=== PATIENT | female | born 2000 | race Caucasian/White ===

== ENCOUNTER 2019-06-26 04:37 | Emergency (ER) | payer SELFPAY ==
--- NOTE | 2019-06-26 04:56 | PDOC ---
History of Present Illness - General Chief Complaint: Alcohol intoxication Stated Complaint: INTOX Time Seen by Provider: 06/26/19 04:48 History Source: Friend Exam Limitations: No Limitations - History of Present Illness Initial Comments: 06/26/19 04:52 This is a 18-year-old female brought in by EMS for evaluation of intoxication. Patient is with a friend. A Friend said they were out drinking vodka and her last drink was approximately 2 hours ago. The reason EMS was called to the patient's [facility] was because patient had passed out in the lobby of the school. However here in the emergency room patient is agitated and does not want to stay. Allergies: as per nursing notes Past Medical History: none Social history: Lives with family. No smoking. No alcohol. No illicit drugs. Surgical history: None General: No fevers or chills, no weakness, no weight loss HEENT: No change in vision. No sore throat,. No ear pain CardioVascular: no chest discomfort. No shortness of breath Respiratory:No cough, or wheezing. Gastrointestinal: no nausea, vomiting, diarrhea or constipation, No rectal bleeding Genitourinary: No dysuria, hematuria, or frequency Musculoskeletal: No joint or muscle pain or swelling Neurologic: No headache, vertigo, dizziness or loss of consciousness Psychiatric: nor depression Skin: No rashes or easy bruising Endocrine: no increased thirst or abnormal weight change Allergic: no skin or latex allergy All other systems reviewed and normal Exam: General: Well-nourished well-developed individual, no acute distress HEENT: Throat: Normal, tonsils normal, no erythema or exudate Neck: Supple, no meningeal signs, no lymphadenopathy Eyes::Pupils equal reactive and round, extraocular motion intact Chest: Nontender to palpation Cardiac: S1-S2 normal, regular rate and rhythm, no murmurs rubs or gallops Respiratory: Lungs clear to auscultation bilateral Abdomen: Soft, nondistended, normal bowel sounds, there is no tenderness on palpation diffusely Extremities: Warm, dry, no cyanosis, clubbing, or edema Skin: No rashes Neuro: Alert and oriented x3, CN II - XII intact, nonfocal exam with normal strength, normal sensation, normal reflexes, normal gait, Psych: Normal mood and affect 06/26/19 06:19 Patient awake alert ambulatory and in no distress. Patient able to ambulate to the bathroom without difficulty. Patient states that she is ready to go home and wants to go home. Patient's friend will make sure she gets back to her dormitory Past History - Past Medical History Allergies/Adverse Reactions: Allergies Allergy/AdvReac Type Severity Reaction Status Date / Time No Known Allergies Allergy Unverified 06/26/19 04:46 Home Medications: Ambulatory Orders NK [No Known Home Medication] 06/26/19 Discharge - Discharge Information Problems reviewed: Yes Clinical Impression/Diagnosis: Intoxication Condition: Stable Disposition: HOME - Admission No - Follow up/Referral - Patient Discharge Instructions Patient Printed Discharge Instructions: Alcohol and Stress: There are Safer Ways to [place], [place] for Alcohol Abuse Additional Instructions: Return to the emergency department immediately with ANY new, persistent or worsening symptoms. Continue any medications as previously prescribed by your physician. You should follow up with your primary doctor as soon as possible regarding today's emergency department visit. . Please make sure your doctor reviews the results of your emergency evaluation. Thank you for coming to the Emergency Department today for your care. It was a pleasure to see you today. Please note that your evaluation is INCOMPLETE until you follow-up with your doctor. - Post Discharge Activity
[2019-06-26 05:06] VITALS: TEMP 97.6; BMI 20.1
[2019-06-26 06:05] VITALS: BP 132/88; PULSE 103
== END 2019-06-26 06:11 | disposition home or self-care (01) ==
LOC: FER 04:37
DX: F10.120 Alcohol abuse with intoxication, uncomplicated (principal)
CPT/HCPCS: 99282-25